=== PATIENT | male | born 1960 | race American Indian/Alaskan Native ===

== ENCOUNTER 2018-05-27 06:14 | Day surgery (SDC) | payer BC ==
[2018-05-24 09:00] LABS: Basophils % (Auto) 0.7 % (0.0-1.8); Eosinophils # (Auto) 0.1 K/mm3 (0.0-0.4); Eosinophils % (Auto) 5.3 % (0.0-4.3); Hematocrit 36.7 % (35.5-45.6); Hemoglobin 12.7 gm/dl (11.8-15.2); Lymphocytes # (Auto) 1.1 K/mm3 (1.2-5.4); Lymphocytes % (Auto) 40.2 % (13.4-35.0); Mean Corpuscular HGB Conc 35 % (32-34); Mean Corpuscular Hemoglobin 33 pg (28-32); Mean Corpuscular Volume 97 fl (84-94); Monocytes # (Auto) 0.4 K/mm3 (0.0-0.8); Monocytes % (Auto) 14.9 % (0.0-7.3); Platelet Count 288 K/mm3 (140-440); Red Cell Distribution Width 13.2 % (13.2-15.2)
[2018-05-24 09:17] LABS: BUN/Creatinine Ratio 9; Blood Urea Nitrogen 12 mg/dL (9-20); Calcium 9.5 mg/dL (8.4-10.2); Hemolysis Index 16
[2018-05-27] MEDS ORDERED: NACL BACTERIOSTATIC INFILTRATI ONE (06:23)
[2018-05-27] MEDS ORDERED: LACTATED RINGERS 1,000 ML ONE (06:59)
[2018-05-27] MEDS ORDERED: ANCEF/STERILE WATER 2 GM/20 ML IV NR (07:00)
[2018-05-27] MEDS ORDERED: DIPRIVAN 10 MG/ML IV ONE (07:18)
[2018-05-27] MEDS ORDERED: DILAUDID ONE (07:19)
[2018-05-27] MEDS ORDERED: VERSED IV PRN (07:39)
--- NOTE | 2018-05-27 07:39 | Anesthesia Consultation ---
Anesthesia Consult and Med Hx Date of service: 05/27/18 - Airway Anesthetic Teeth Evaluation: Good ROM Head & Neck: Adequate Mental/Hyoid Distance: Adequate Mallampati Class: Class II Intubation Access Assessment: Probably Good - Pre-Operative Health Status ASA Pre-Surgery Classification: ASA2 Proposed Anesthetic Plan: General - Pulmonary Hx Smoking: No Hx Asthma: No Hx Sleep Apnea: No - Cardiovascular System Hx Hypertension: Yes (2 YEARS) Hx Coronary Artery Disease: No - Central Nervous System Hx Seizures: No CVA: No Hx Psychiatric Problems: No - Gastrointestinal Hx Gastroesophageal Reflux Disease: No - Endocrine Hx Renal Disease: No Hx Non-Insulin Dependent Diabetes: No - Other Systems Hx Cancer: No Hx Obesity: No
--- NOTE | 2018-05-27 07:41 | Anesthesia Day of Surgery ---
Anesthesia Day of Surgery - Day of Surgery Patient Examined: Yes Patient H&P Reviewed: Yes Patient is NPO: Yes
[2018-05-27] MEDS ORDERED: MARCAINE 0.5% INFILTRATI ONE ×2 (07:44→08:53)
[2018-05-27] MEDS ORDERED: XYLOCAINE 1% 20 mL ONE (07:44)
[2018-05-27] MEDS ORDERED: LACTATED RINGERS 1,000 ML IV SCH (08:00)
[2018-05-27] MEDS ORDERED: DILAUDID IV PRN (08:52)
[2018-05-27] MEDS ORDERED: NACL 0.9% IR ONE (08:53)
[2018-05-27] MEDS ORDERED: XYLOCAINE 1% 20 mL INFILTRATI ONE (08:53)
[2018-05-27] MEDS ORDERED: QUELICIN ONE (08:56)
[2018-05-27] MEDS ORDERED: XYLOCAINE MPF 2% ONE (08:56)
[2018-05-27] MEDS ORDERED: ZEMURON IV ONE (08:56)
[2018-05-27] MEDS ORDERED: ROBINUL ONE ×2 (08:57→11:26)
[2018-05-27] MEDS ORDERED: ZOFRAN ONE (08:57)
[2018-05-27] MEDS ORDERED: DECADRON ONE (08:57)
[2018-05-27] MEDS ORDERED: BLOXIVERZ ONE (08:57)
[2018-05-27] MEDS ORDERED: NACL 0.9% 1000 ML 1,000 ML ONE (10:22)
--- NOTE | 2018-05-27 11:52 | Short Stay Summary ---
Short Stay Documentation Date of service: 05/27/18 - History Principal diagnosis: left inguinal hernia, soft tissue mass right posterior neck H&P: obtained from office - Allergies and Medications Current Medications: Allergies No Known Drug Allergies Allergy (Verified 05/27/18 07:35) SNEEZING POLLEN Allergy (Uncoded 05/27/18 07:35) Unknown Home Medications Medication Instructions Recorded Confirmed Last Taken Type Olmesartan/Hydrochlorothiazide 1 tab PO QDAY 05/21/18 05/21/18 Unknown History [Benicar HCT 20-12.5 mg] Active Medications Cefazolin Sodium (Ancef/Sterile Water 2 Gm/20 Ml) 2 gm IV PREOP NR Stop: 05/27/18 23:59 Hydromorphone HCl (Dilaudid) 0.5 mg IV Q10MIN PRN PRN Reason: Pain , Severe (7-10) Stop: 05/27/18 20:00 Lactated Ringer's (Lactated Ringers) 1,000 mls @ 100 mls/hr IV DIRECT SCAR Last Admin: 05/27/18 06:55 Dose: 100 mls/hr Midazolam HCl (Versed) 2 mg IV PREOP PRN PRN Reason: Anxiety Stop: 05/27/18 13:00 Last Admin: 05/27/18 07:45 Dose: 2 mg - Brief post op/procedure progress note Date of procedure: 05/27/18 Pre-op diagnosis: left inguinal hernia, soft tissue mass right posterior neck Post-op diagnosis: same Procedure: 1. Robotic assisted laparoscopic left inguinal hernia repair with mesh 2. Excision of lipoma right posterior neck/upper back Anesthesia: GETA, local Findings: 1. large direct left inguinal hernia 2. 5cm x 8cm lipoma of upper back Surgeon: RANDI SALDANA Estimated blood loss: minimal Pathology: list (lipoma of upper back) Specimen disposition: to lab Condition: stable - Hospital course Hospital course: Patient was observed in PACU and discharged to home in stable condition once criteria was met. - Disposition Condition at discharge: Good Disposition: [id number] TO HOME OR SELFCARE Short Stay Discharge Plan Activity: other (No heavy lifting greater than 15 lbs for the next 4-6 weeks) Diet: regular Wound: open to air, other (May shower tomorrow. May wash abdominal incisions with soap and water, pat dry, do not scrub. Do not submerge incisions in bath/ hottub/pool. Remove dressing of upper back on Thursday. You have stitches in the skin that will be removed in the office in 2 weeks. May wash this area with soap and water. Pat dry and leave open to air.) Additional Instructions: Call surgeon's office if you have any questions. Follow up with: OSMEL HERNANDEZ MD [Primary Care Provider] - 7 Days RANDI SALDANA DO [Staff Physician] - 14 Days Prescriptions: HYDROcodone/APAP 5-325 [[place] 5/325] 1 each PO Q4HR PRN #20 tablet PRN Reason: Pain
--- NOTE | 2018-05-27 13:25 | Post Anesthesia Evaluation ---
- Post Anesthesia Evaluation Patient Participated: Yes Airway Patent: Yes Stable Respiratory Function: Yes Nausea/Vomiting: No Temp > 96.8F: Yes Pain Manageable: Yes Adequeate Hydration: Yes Anesthesia Complications: No
[2018-05-27 14:23] VITALS: BP 120/80
--- NOTE | 2018-05-27 15:08 | Operative Report ---
Operative Report Operative Report: Date of procedure: 05/27/18 Preop diagnosis: left inguinal hernia, soft tissue mass of posterior right neck Post op diagnosis: same as above Procedure: 1. Robotic assisted laparoscopic left inguinal hernia repair with mesh 2. Excision of lipoma right posterior neck/upper back Anesthesia: GETA, local Findings: 1. large direct left inguinal hernia, large cord lipoma 2. 5cm x 8cm lipoma of upper back Surgeon: RANDI SALDANA Estimated blood loss: minimal Pathology: list (lipoma of upper back) Specimen disposition: to lab Condition: stable HPI an indication: Patient is a 58-year-old male who presented to the surgery office for evaluation of left inguinal hernia. On physical exam, the patient was found to have a left-sided inguinal hernia. He did have a history of a right-sided inguinal hernia repair in the past. The hernia was becoming more uncomfortable and the patient requested surgical intervention. After all risks , benefits, alternatives to surgery were discussed with the patient and all questions answered, consent was obtained for robotic-assisted left inguinal hernia repair, possible open, possible mesh. In addition, the patient had complaints of a large mass on the posterior aspect of his right neck, upper back region. This present for over a year and patient states it was uncomfortable, noticeable even with clothing and therefore requested surgical intervention. After all risks, benefits, alternatives for this procedure were discussed, consent was obtained for excision of soft tissue mass. Procedure in detail: The patient was identified in the preoperative area, taken back to the operating room and placed on the operating table in supine position. After anesthesia was induced a Montoya catheter was sterilely placed by the circulating nurse. The abdomen was then prepped and draped in usual sterile fashion and a timeout was performed. Local anesthetic consisting of a 50%/50% mixture of marcaine 0.25% and 1% lidocaine was injected into all skin incision sites. A stab incision was made in the LUQ at [place] through which a Veress needle was inserted. The position of the Veress needle was confirmed using the saline drop test. The abdomen was insufflated to 15 mmHg. A supraumbilical incision was made using a 10 blade, through which a 12 mm Optiview trocar was placed. The abdomen was inspected and there was no underlying injury to any of the abdominal contents. The Veress needle tract and tip were seen and there was no injury, the Veress needle was withdrawn. An additional left upper quadrant and right upper quadrant 8 mm robotic trochars were placed under direct visualization. The left inguinal hernia was visualized , the right inguinal region did not show a hernia. The robot was docked with a fenestrated bipolar grasper and arm #2 and a robotic EndoShears monopolar energy in arm #1. The surgeon was then relocated to the console. The peritoneum of the anterior abdominal wall approximately 5 cm from the region of the hernia was scored and then opened using monopolar Endo Rosemary. This was performed from the midline to the ASIS. Dissection was carried out bluntly in order to the peritoneal flap. Once the hernia was encountered, the lateral pocket was dissected using a combination of blunt dissection and cautery and an avascular plane. I then turned my attention to localizing the pubic tubercle medially. Once the pubic tubercle was visualized and cleared of overlying tissue, the bear mortise was cauterized using the fenestrated bipolar grasper. I then turned my attention to reducing the contents of the hernia. The hernia sac was identified and dissected from the surrounding tissue meticulously using a combination of blunt dissection and electrocautery. The patient had a large direct hernia containing a large hernia sac as well as fat. Once all of this was reduced, I then inspected the cord structures and identified the vas deferens. There was no indirect hernia, however there was a large cord lipoma associated with the cord. The cord lipoma was reduced and was very large, therefore it was transected and removed from the abdomen at the end of the case. Once the dissection was complete, a large left-sided bard 3-D max mesh was introduced into the abdomen via the 12 mm robotic port along with suture material. Hemo stasis was meticulously ensured after dissection and prior to placement of the mesh. The mesh was positioned in the peritoneal pocket in the usual fashion and laid flat over the cord structures, covering all potential hernia defects. The mesh was fixated to the pubic tubercle and to the lateral abdominal wall using a 0 Vicryl suture. The peritoneal flap was then closed with a mesh using a running 3-0V lock suture. The redundant peritoneum from the hernia sac was used to buttress the repair. The robot was then undocked and the 2 needles removed laparoscopically. The 12 mm port was removed and the fascia closed with interrupted 0 Vicryl sutures. The abdomen was slowly desufflated under direct visualization and the peritoneum was seen to lay flat. The remaining ports were removed and the skin incisions closed with 4-0 Monocryl subcuticular stitches and skin glue. At the end of this portion of the procedure, all sponge, instrument, sharp counts were correct 2. The Montoya catheter was removed at this point. The scrotum was examined and both testicles were palpable and in anatomic position. At this point, the patient was repositioned into a right lateral decubitus position and all bony prominences and the axilla padded. The upper back/right posterior neck soft tissue mass was easily visualized and this area was prepped and draped in the usual sterile fashion. The skin and subcutaneous tissue was infiltrated with local anesthetic and a 6 cm incision was made using a 15 blade. Dissection was carried down through skin and subcutaneous tissue using Bovie electrocautery until the soft tissue mass was encountered. This appeared to be fatty, most consistent with lipoma. The lipoma was dissected from the surrounding tissue using a combination of blunt dissection with a hemostat as well as electrocautery. Once circumferentially freed from the surrounding tissues, the lipoma was transected from the posterior attachments using electrocautery. The underlying fascia was preserved. Lipoma was measured at approximately 5 cm x 8 cm. The cavity was irrigated and hemostasis using electrocautery. The deep subcutaneous tissue was approximated using 2-0 Vicryl interrupted sutures. The deep dermal layer was approximated using 2-0 Vicryl interrupted sutures. The skin was closed using 3-0 nylon vertical mattress sutures (6 total). The skin was cleansed and a Telfa was placed over the incision. This was covered with 4 x 4 gauze and Elastoplast tape. At the end of this portion of the case, all sponge, instrument, sharp counts were correct 2. The patient was awoken from anesthesia, extubated, transferred to the stretcher and taken to PACU in stable condition.
== END 2018-05-27 14:00 | disposition home or self-care (01) ==
LOC: OR 06:14
PROVIDERS: ATTEND Surgery
DX: K40.90 Unilateral inguinal hernia, without obstruction or gangrene, not specified as recurrent (principal); D17.0 Benign lipomatous neoplasm of skin and subcutaneous tissue of head, face and neck; D17.6 Benign lipomatous neoplasm of spermatic cord; I10 Essential (primary) hypertension; Z79.899 Other long term (current) drug therapy; Z98.890 Other specified postprocedural states
CPT/HCPCS: 21552; 36415; 49650; 80048; 85025; 88304; C1781; J0330; J0690; J1100; J1170; J2250; J2405; J2704; J2710; J7030; J7120; S2900